=== PATIENT | male | born 1985 | race Two or more races ===

== ENCOUNTER → 2022-12-21 20:30 | Outpatient (REF) | payer MEDICAID, SELFPAY | LOC: HO.SL 20:30 | PROVIDERS: PCP Registered Nurse; Visit Provider Nurse Practitioner | DX: G47.33 Obstructive sleep apnea (adult) (pediatric) (principal) | CPT/HCPCS: 95810 ==

== ENCOUNTER 2023-05-17 13:46 | Outpatient (REF) | payer MEDICAID, SELFPAY ==
[2023-05-18 05:17] LABS: HBS Num1 4.86 mIU/mL (0-7.99); HBc Num1 0.15 S/CO (0.00-0.79); HBsAGNum1 0.35 S/CO (0.00-0.99); Hepatitis B Core Antibody Nonreactive (Nonreactive); Hepatitis B Surface Antigen Negative (Negative); ~Hepatitis B Surface Antibody NONREACTIVE (Nonreactive)
[2023-05-19 09:14] LABS: Rubella IgG Antibody 9.56 Index
[2023-05-19 22:13] LABS: TS Negative Control Passed; TS Panel A 0; TS Panel B 0; TS Positive Control Passed; TSpotTB Negative (Negative)
== END 2023-05-17 13:47 | disposition home or self-care (01) ==
LOC: HO.HHCL 13:46
PROVIDERS: Visit Provider Registered Nurse
DX: Z00.00 Encounter for general adult medical examination without abnormal findings (principal); Z11.1 Encounter for screening for respiratory tuberculosis
CPT/HCPCS: 36415; 86481; 86704; 86706; 86735; 86762; 86765; 86787; 87340

== ENCOUNTER 2025-04-21 10:25 | Outpatient (REF) | payer SELFPAY ==
[2025-04-22 07:59] LABS: HBS Num1 6.83 mIU/mL (0-7.99); HIV Num 1 0.05 S/CO (0.00-0.99); ~HepC Num1 10.11 S/CO (0.00-0.79); ~Hepatitis B Surface Antibody NONREACTIVE (Nonreactive); ~Hepatitis C Antibody Reactive (Nonreactive)
[2025-04-22 10:57] LABS: Rubeola IgG (Measles) >300.00 AU/mL
[2025-04-23 16:39] LABS: HCV Log PCR <1.18 NOT DETECTED Log IU/mL (NOT DETECTED); HepC Viral Load <15 NOT DETECTED IU/mL (NOT DETECTED)
[2025-04-24 07:54] LABS: TS Negative Control Passed; TS Panel A 0; TS Panel B 0; TS Positive Control Passed; TSpotTB Negative (Negative)
== END 2025-04-21 10:26 | disposition home or self-care (01) ==
LOC: HO.CHCLDS 10:25
PROVIDERS: Visit Provider Internal Medicine
DX: Z00.00 Encounter for general adult medical examination without abnormal findings (principal); Z11.3 Encounter for screening for infections with a predominantly sexual mode of transmission; Z11.59 Encounter for screening for other viral diseases; Z11.4 Encounter for screening for human immunodeficiency virus [HIV]
CPT/HCPCS: 36415; 86481; 86592; 86706; 86735; 86762; 86765; 86803; 87389; 87522

== ENCOUNTER 2025-06-27 10:12 | Outpatient (REF) | payer OTHER, SELFPAY ==
--- OUTSIDE RECORDS SUMMARY | 2025-06-27 11:38 | XMS_ITS | Encounter Summary ---
Author Organization [employer] Address [address] [place] [address] Care Team Providers Care Sustainability Executive Director Name Role Phone Izabella Moreno ORDER DEPARTMENT SUPERVISOR Primary Care Provider [phone] Encounter Details Date Type Department Care Team ([facility] st Contact Info) Description 04/23/2025 Results Follow-Up [facility]EDS [address] [place], [place] [phone] Estelita Blood MD [address] [place] [address] Hepatitis C Viral RNA, Quantitative, Real-Time PCR Social History Tobacco Use Types Packs/Day Years Used Date Smoking Tobacco: Never Smokeless Tobacco: Never Comments:Vapes Alcohol Use Standard Drinks/Week Comments Never 0 (1 standard drink = 0.6 oz pur e alcohol) Depression Answer Date Recorded Patient Health Questionnaire-9 Score 3 04/21/2025 Patient Health Questionnaire-9 Score 3 04/21/2025 Last PHQ-9: Questionnaire Data Not on file 0 04/21/2025 Housing Stability Answer Date Recorded What is your housing situation today? I have tejasrufina bennett 04/14/[address] you li ve. Do you have problems with any of the following? None of the above 04/14/2025 Food Insecurity Answer Date Recorded Within the past 12 months, y ou worried that your food would run out before you got money to buy more: Never True 04/14/2025 Within the past 12 months,th e food you bought just didn't last and you didn't have enough money to get more: Never True 07/2025 Transportation Answer Date Recorded In the past 12 months, has l ack of transportation kept you from medical appts, meetings, work or from getting things needed for daily living? No 04/14/2025 Utilities Answer Date Recorded In the past 12 months, has t he electric, gas, oil or water company threatened to shut off services in your home? No 04/14/2025 Depression Answer Date Recorded Patient Health Questionnaire-2 Score 1 04/21/2025 Internet Access Answer Date Recorded Internet Access Q1 Yes 04/14/2025 Internet Access Q2 Not on file 04/14/2025 Sex and Gender Information Value Date Recorded Sex Assigned at Male 07/04/2022 10:24 AM EDT Legal Sex Male 10:24 AM EDT Gender Identity Male 07/04/2022 10:24 AM EDT Sexual Orientation Straight 07/04/2022 10 :24 AM EDT documented as of this encounter Plan of Treatment Not on file documented as of this encounter Visit Diagnoses Not on filedocumented in this encounter Additional Health Concerns Assessment Noted Time PHQ-9 Depression Total Score: 3 04/21/20 25 10:06 AM EDT documented as of this encounter Care Teams Sustainability Executive Director Relationship Specialty Start Date End Date Izabella Moreno FNP [address] [place] [phone] PCP - General Family Medicine 03/11/22 documented as of this encounter
--- OUTSIDE RECORDS SUMMARY | 2025-06-27 11:38 | XMS_ITS | Clinical Summary ---
Author Organization [employer] Address [address] [place] [address] Care Team Providers Care Wood Window And Door Craftsman Name Role Phone Izabella Moreno Primary Care Provider [phone] Allergies Active Allergy Reactions Criticality Noted Date Comments Sulfa Antibiotics 10/06/2021 Medications albuterol 108 (90 Base) MCG/ACT inhaler inhale 2 puff by inhalation route every 4 - 6 hours as needed 0 Active lidocaine (Lidoderm) 5 % patch apply 1 patch by transdermal route every day (May wear up to 12hours.) as needed for pain 2 Active cholecalciferol (Vitamin D-3) 50 MCG (1999) tabletIndications :Vitamin D insufficiency take 1 tablet by oral route every day 90 tablet 1 3 Active Blood Pressure kitIndications:El evated blood pressure reading To check the BP daily 1 kit 5 Active Active Problems Problem Noted Date Diagnosed Date Excessive cerumen in right ear canal 04/21/2025 Adult attention deficit hyperactivity disorder 0 09/16/2022 Bipolar disorder 09/16/2022 Mild persistent asthma 06/13/2022 Encounters Date Type Department Care Team Description 06/16/2025 Telephone [facility] [address] [place] [address] Izabella Moreno FNP 06/02/2025 11:30 AM EDT Clinical Support [facility] [address] [place] [address] Yin Foss RN Encounter for immunization 06/02/2025 Travel 05/19/2025 9:45 AM EDT Clinical Support [facility] [address] [place] [address] Yin Foss, MARITZA Elevated blood pressure reading 05/19/2025 Travel 04/28/2025 11:30 AM EDT Clinical Support [facility] [address] [place] [address] Jennifer Turcios, MARITZA Encounter for immunization (Primary Dx) 04/28/2025 Travel 04/25/2025 Telephone [facility] [address] [place] [address] Izabella Moreno FNP 04/25/2025 Travel 04/24/2025 Results Follow-Up [facility] [address] [place] [address] Jennifer Turcios RN HIV-1/2 Antigen and Antibodies, Fourth Generation, with Reflexes, Hepatitis C Antibody with Reflex to HCV, RNA, Quantitative, Real-Time PCR, RPR (Monitor) with Reflex to Titer, Additional followed-up results: 2 04/23/2025 Results Follow-Up [facility] [address] [place] [address] Estelita Blood MD Hepatitis C Viral RNA, Quantitative, Real-Time PCR 04/21/2025 9:30 AM EDT Office Visit [facility] [address] [place] [address] Estelita Blood MD Mild persistent asthma, unspecified whether complicated (Primary Dx); Bipolar disorder in full remission, most recent episode unspecified type (CMS/HCC); Adult attention deficit hyperactivity disorder; Annual physical exam; Dietary counseling; Exercise counseling; Class 1 obesity due to excess calories without serious comorbidity with body mass index (BMI) of 34.0 to 34.9 in adult; Routine screening for STI (sexually transmitted infection); Excessive cerumen in right ear canal; Elevated blood pressure reading; Encounter for immunization 04/21/2025 Orders Only [facility] [address] [place] [phone] Estelita Blood MD 04/21/2025 Travel 04/18/2025 Telephone [facility] PEDS [address] [place] [address] Estelita Blood MD chart prep 04/14/2025 Travel 04/14/2025 Patient Outreach [facility] [address] [place], [place] [phone] Izabella Moreno FNP from Last 3 Months Immunizations Immunization Administration Dates Next Due Hep B, adult 08/01/2023, 3,04/08/2022,2021,10/21/2021 HepB-CpG 06/02/2025,04/28/2025 Influenza Injectable Quadriv alant Preservative Free IIV4 MDCK 07/22/2021 Influenza injectable quadriv alent preservative free 05/25/2023,05/11/2022 Influenza, seasonal, injecta ble, preservative free 08/22/2017,06/21/2016,06/01/2015 MMR 04/28/2025 Pneumococcal Conjugate PCV 20 04/21/2025 Tdap 07/31/2018 Family History Medical History Relation Name Comments Fibromyalgia Mother Heart disease Mother Hypertension Mother Relation Name Status Comments Mother Social History Tobacco Use Types Packs/Day Years Used Date Smoking Tobacco: Never Smokeless Tobacco: Never Tobacco Cessation:Counseling Given: Not Answered Comments:Vapes Alcohol Use Standard Drinks/Week Comments Never 0 (1 standard drink = 0.6 oz pur e alcohol) Depression Answer Date Recorded Patient Health Questionnaire-9 Score 3 04/21/2025 Patient Health Questionnaire-9 Score 3 04/21/2025 Last PHQ-9: Questionnaire Data Not on file 0 04/21/2025 Housing Stability Answer Date Recorded What is your housing situation today? I have tejas sing 04/14/[address] you li [...] Orientation Straight 07/04/2022 10 :24 AM EDT Last Filed Vital Signs Vital Sign Reading Time Taken Comments Blood Pressure 126/84 05/19/2025 10:22 AM EDT Pulse 70 05/19/2025 10:21 AM EDT Temperature 36.6 C (97.8 F) 04/21/2025 9:34 AM EDT Respiratory Rate 20 04/21/2025 9:34 AM EDT Oxygen Saturation 96% 04/21/2025 9:34 AM EDT Inhaled Oxygen Concentration - - Weight 102 kg (225 lb 6.4 oz) 05/19/2025 10:21 A M EDT Height 170.5 cm (5' 7.13 ) 04/21/2025 10:30 AM E DT Body Mass Index 35.17 04/21/2025 10:30 AM EDT Plan of Treatment Health Maintenance Due Date Last Done Comments Dental Prophylaxis 1987 Family Planning (PISQ) 12/16/2002 HPV Vaccines (1 - Male 3-dose series) 12/16/2002 Dental Oral Exam 09/27/2012 03/26/2012 Dental X-Ray: Bitewings 03/27/2013 03/26/2012 Dental X-Ray: Full Mouth 05/17/2015 05/16/2012, 03/05 COVID-19 Vaccine ( season) 2025 09/24/2021, 12/02/2020, 11/06/2020 Disability Screening 04/14/2026 04/14/2025 Alcohol/Substance Use Screening 04/21/2026 04/21/2025 Depression Screening 04/21/2026 04/21/2025, 04/21/20 SDOH Screening 04/21/2026 04/21/2025 Tobacco Screening 04/21/2026 04/21/2025 Lipid Panel 05/20/2027 05/20/2022, 10/13/2021 DTaP/Tdap/Td Vaccines (2 - Td or Tdap) 07/31/2028 07/31/2018 Zoster Vaccines (1 of 2) 12/16/2037 RSV Patients and Patients Aged 60 years or older (1 - 1-dose 75+ series) 12/16/2062 HIV Screening Completed 04/21/2025, 10/13/2021 Hepatitis C Screening Completed 04/21/2025 , 04/21/2025, 10/13/2021 Pneumococcal Vaccine: Pediatrics (0 to 5 Years) and At-Risk Patients (6 to 49) Years Completed 04/21/2025 Influenza Vaccine Completed 04/30/2025, , 05/11/2022, Additional history exists Hepatitis B Vaccines Completed 06/02/2025, 04/28/2025, 08/01/2023, Additional history exists HIB Vaccines Aged Out No longer eligi ble based on patient's age to complete this topic Hepatitis A Vaccines Aged Out No long er eligible based on patient's age to complete this topic IPV Vaccines Aged Out No longer eligi ble based on patient's age to complete this topic Meningococcal B Vaccine Aged Out No l onger eligible based on patient's age to complete this topic Meningococcal Vaccine Aged Out No sherry jessy eligible based on patient's age to complete this topic RSV under 20 months Aged Out No longe r eligible based on patient's age to complete this topic Rotavirus Vaccines Aged Out No longer eligible based on patient's age to complete this topic Procedures Procedure Name Priority Date/Time Associated Diagnosis Comments HEPATITIS C VIRAL RNA, QUANTITATIVE, REAL-TIME PCR Routine 04/21/2025 10:34 AM EDT HEPATITIS B SURFACE ANTIBODY, QUALITATIVE Routine 04/21/2025 10:34 AM EDT Annual physical exam MEASLES, MUMPS, AND RUBELLA (MMR) AB (IGG) PANEL, IMMUNE STATUS Routine 04/21/2025 10:34 AM EDT Annual physical exam T-SPOT(R).TB Routine 04/21/2025 10:34 AM EDT Annual physical exam RPR (MONITOR) W/REFL TITER Routine 04/21/2025 10:34 AM EDT Annual physical exam Routine screening for STI (sexually transmitted infection) HEPATITIS C AB W/REFL TO HCV RNA, QN, PCR Routine 04/21/2025 10:34 AM EDT Annual physical exam Routine screening for STI (sexually transmitted infection) HIV 1/2 ANTIGEN/ANTIBODY, FOURTH GENERATION W/RFL Routine 04/21/2025 10:34 AM EDT Annual physical exam Routine screening for STI (sexually transmitted infection) LIPID PANEL, STANDARD Routine 05/20/2022 9:06 AM EDT PANORAMIC RADIOGRAPHIC IMAGE Routine 05/16/2012 12:00 AM EDT INTRAORAL - COMPLETE SERIES OF RADIOGRAPHIC IMAGES Routine 03/26/2012 12:00 AM EDT COMPREHENSIVE ORAL EVALUATION - NEW OR ESTABLISHED PATIENT Routine 03/26/2012 12:00 AM EDT from Last 3 Months or Most Recently Relevant to Health Maintenance Results * T-SPOT??.TB (04/21/2025 10:34 AM EDT) [facility] T Spot TB Negative Negative [facility] Comment:A negative test resu lt does not exclude the possibilityof exposure to or infection with Mycobacteriumtuberculosis (M. tuberculosis). Patients with recentexposure to TB infected individuals exhibiting anegative T-SPOT.TB result should be considered forretesting within 6 weeks or if other relevant clinicalsymptoms indicate. Results from T-SPOT.TB testing mustbe used in conjunction with each individual'sepidemiological history, current medical status,and results of other diagnostic evaluations.The T-SPOT.TB test is qualitative and results arereported as positive, borderline, or negative, giventhat the test controls perform as expected. In linewith the Centers for Disease Control and Prevention's2010 recommendation to report quantitative measurementsalongside the qualitative result, the laboratoryprovides spot counts for informational purposes only.The T-SPOT.TB test should not be interpreted as aquantitative test. TS PANEL A 0 [facility] TS PANEL B 0 [facility] Negative Control Passed [facility] Positive Control Passed [facility] Comment:For additional infor nat, please refer tohttp://education.[employer]faq/NYY871(This link is being provided for informational/educational purposes only.)THIS TEST WAS PERFORMED AT:[employer] [id number] [place] [phone] HERNANDEZ MD,PHD 04/21/2025 10:3 4 AM EDT 04/21/2025 1:59 PM EDT Estelita Blood MD LAB BLOOD ORDERABLES Final Result [facility] [address] [place] [phone] * (ABNORMAL) Measles, Mumps, and Rubella (MMR) Antibodies??(IgG) Panel, Immune Status (04/21/2025 10:34 AM EDT) Mumps Virus IgG Antibody <9.00(A) AU/mL [facility] Comment:AU/mL Interpretation ------- <9.00 Not consistent with immunity9.00-10.99 Equivocal>10.99 Consistent with immunityThe presence of mumps IgG antibody suggests immunizationor past or current infection with mumps virus. Rubella IgG Antibody 6.11 Index [facility] Comment:Index Interpretation ----- <0.90 Not consistent with immunity 0.90-0.99 Equivocal > or = 1.00 Consistent with immunityThe presence of rubella IgG antibody suggestsimmunization or past or current infection withrubella virus.THIS TEST WAS PERFORMED AT:[facility] [place] [phone] WELCH MD Rubeola IgG (Measles) >300.00 AU/mL [facility] Comment:AU/mL Interpretation ----- <13.50 Not consistent with jeehparu11.50-16.49 Equivocal>16.49 Consistent with immunityThe presence of measles IgG suggests immunization orpast or current infection with measles virus.For additional information, please refer tohttp://[employer].rumr: turn off the lights/faq/JYP672(This link is being provided for informational/educational purposes only.) Blood Venous blood specimen / Unknown 04/21/2025 10:34 AM EDT 04/21/2025 1:59 PM EDT Estelita Blood MD LAB BLOOD ORDERABLES Final Result [facility] [address] [place] [address] [phone] * Hepatitis C Viral RNA, Quantitative, Real-Time PCR (04/21/2025 10:34 AM EDT) Hepatitis C Viral Load <15 NOT DETECTED NOT DETECTED IU/mL [facility] HCV Log PCR <1.18 NOT DETECTED NOT DETECTED Log IU/mL [facility] Comment:For additional infor mation, please refer tohttp://education.[employer]faq/UDF20i3(This link is being provided for informational/educational purposes only.)THIS TEST WAS PERFORMED AT:[facility] [place] [phone] WELCH MD 04/21/2025 10:3 4 AM EDT 04/22/2025 10:32 AM EDT Estelita Blood MD LAB BLOOD ORDERABLES Final Result Performing Organization Address [facility] Co de Phone Number [facility] [address] [place] [address] [phone] * (ABNORMAL) Hepatitis C Antibody with Reflex to HCV, RNA, Quantitative, Real- Time PCR (04/21/2025 10:34 AM EDT) Hepatitis C Antibody Reactive( A) Nonreactive [facility] Comment:Presumptive evidence of antibodies to HCV. Blood Venous blood specimen / Unknown 04/21/2025 10:34 AM EDT 04/21/2025 1:59 PM EDT us Estelita Blood MD LAB BLOOD ORDERABLES Final Result Performing Organization Address [facility] de Phone Number [facility] [address] [place] [phone] * RPR (Monitor) with Reflex to??Titer (04/21/2025 10:34 AM EDT) RPR (Monitor) w/Refl Titer NON-REACTI VE NON-REACT CHALINO [facility] Comment:THIS TEST WAS PERFOR MED AT:[facility] [place] [phone] WELCH MD Rapid Plasma Reagin Ab Titer TNP [facility] Blood Venous blood specimen / Unknown 04/21/2025 10:34 AM EDT 04/21/2025 1:59 PM EDT us Estelita Blood MD LAB BLOOD ORDERABLES Final Result Performing Organization Address [facility] Co de Phone Number [facility] [address] [place] [phone] * HIV-1/2 Antigen and Antibodies, Fourth Generation, with Reflexes (04/21/2025 10:34 AM EDT) HIV AB/AG Nonreactive Nonreactive [facility] Comment:HIV-1 p24 Ag and/or HIV-1/HIV-2 Ab not detected.A test result that is nonreactive does not exclude thepossibility of exposure to or infection with HIV-1 and/orHIV-2. Nonreactive results in this assay for individualswith prior exposure to HIV-1 and/or HIV-2 may be due toantigen and antibody levels that are below the limit ofdetection of this assay.The [employer] HIV Ag/Ab Combo assay result andsupplemental assay results should be interpreted inconjunction with the patient's clinical presentation,history and other laboratory results. If the results areinconsistent with clinical evidence, additional testing issuggested to confirm the result. Blood Venous blood specimen / Unknown 04/21/2025 10:34 AM EDT 04/21/2025 1:59 PM EDT us Estelita Blood MD LAB BLOOD ORDERABLES Final Result Performing Organization Address City/[facility]/ZIP Co de Phone Number [facility] [address] [place] [phone] * Hepatitis B Surface Antibody, Qualitative (04/21/2025 10:34 AM EDT) [facility] ~Hepatitis B Surface Antibody NONREACTIVE Nonreactive [facility] Comment:Nonreactive: < 8.00 mIU/mL Blood Venous blood specimen / Unknown 04/21/2025 10:34 AM EDT 04/21/2025 1:59 PM EDT us Estelita Blood MD LAB BLOOD ORDERABLES Final Result Performing Organization Address [facility]/ZIP Co de Phone Number [facility] [address] [place] [phone] * (ABNORMAL) LIPID PANEL, STANDARD (05/20/2022 9:06 AM EDT) [facility] Chol/HDLC Ratio 3.9 <5.0 (calc) [facility] Cholesterol, Total 151 <200 mg/dL [facility] HDL Cholesterol 39(L) > OR = 40 mg/dL [facility] LDL Cholesterol 79 mg/dL (calc) [facility] Comment: Reference range: <100 Desirable range <100 mg/dL for primary prevention; <70 mg/dL for patients with CHD or diabetic patients with > or = 2 CHD risk factors. LDL-C is now calculated using the Lamont calculation, which is a validated novel method providing better accuracy than the Friedewald equation in the estimation of LDL-C. Donell SS et al. BUD. 2013;310(19): 9719-7114 (http://education.rumr: turn off the lights/faq/BQQ485) Non-HDL Cholesterol 112 <130 mg/dL (calc) [facility] Comment: For patients with diabetes plus 1 major ASCVD risk factor, treating to a non-HDL-C goal of <100 mg/dL (LDL-C of <70 mg/dL) is considered a therapeutic option. Triglycerides 254(H) <150 mg/dL [facility] Comment: If a non-fasting specimen was collected, consider repeat triglyceride testing on a fasting specimen if clinically indicated. Roma et al. J. of Clin. Lipidol. 2015;9:129-169. 05/20/2022 9:06 AM EDT Izabella Moreno [facility] LAB BLOOD ORDERABLES Final Res ult [facility] [address] from Last 3 Months or Most Recently Relevant to Health Maintenance Insurance [employer] [phone] DENTAL - [facility] Care Teams Wood Window And Door Craftsman Relationship Specialty Start Date End Date Izabella Moreno FNP [address] [place] [address] PCP - General Family Medicine 03/11/22
[2025-06-28 03:51] LABS: HBc Num1 0.19 S/CO (0.00-0.79)
[2025-06-28 04:16] LABS: HBS Num1 > 1000.00 mIU/mL (0-7.99); HBsAGNum1 0.42 S/CO (0.00-0.99); Hepatitis B Surface Antigen Negative (Negative); ~Hepatitis B Surface Antibody REACTIVE (Nonreactive)
== END 2025-06-27 10:13 | disposition home or self-care (01) ==
LOC: HO.CHCLDS 10:12
PROVIDERS: Visit Provider Registered Nurse
DX: Z23 Encounter for immunization (principal)
CPT/HCPCS: 36415; 86704; 86706; 87340